=== PATIENT | female | born 1935 | race Two or more races ===

== ENCOUNTER 2019-02-11 20:53 | Observation (INO) | payer MEDICARE, OTHER ==
[~2019-02-11] VITALS: Ht 160 cm; Wt 59.7 kg
[~2019-02-11 20:53] MED LIST: ASPI81EC PO; ATEN50 PO; CLOP75 PO; CYCL10 PO; GLUCOPHAGE PO; HYDACE5 PO; IBUP800 PO; NAPR500 PO
[2019-02-11] MEDS ORDERED: Metformin HCl500 MG PO (21:35)
[2019-02-11] MEDS ORDERED: LOSA25 PO (21:36)
[2019-02-11] MEDS ORDERED: AMLO5 PO (21:36)
[2019-02-11 22:25] LABS: BASOPHILS ABSOLUTE AUTO 0.04 K/mm3 (0.00-0.23); BASOPHILS PERCENT AUTO 0 % (0-2); EOSINOPHILS ABSOLUTE AUTO 0.07 K/mm3 (0.00-0.68); EOSINOPHILS PERCENT AUTO 1 % (0-6); Hematocrit 38.3 % (33.0-51.0); Hemoglobin 13.2 g/dL (11.5-16.0); IMMATURE GRAN ABSOLUTE AUTO 0.08 K/mm3 (0.00-0.10); IMMATURE GRAN PERCENT AUTO 1 % (0-1); LYMPHOCYTES ABSOLUTE AUTO 2.46 K/mm3 (0.84-5.20); LYMPHOCYTES PERCENT AUTO 22 % (21-46); MONOCYTES ABSOLUTE AUTO 0.79 K/mm3 (0.16-1.47); MONOCYTES PERCENT AUTO 7 % (4-13); Mean Corpuscular HGB 29.8 pg (26.0-34.0); Mean Corpuscular HGB Conc 34.5 g/dL (31.5-36.5); Mean Corpuscular Volume 87 fL (80-100); Mean Platelet Volume 9.7 fL (9.1-12.4); NEUTROPHILS ABSOLUTE AUTO 7.76 K/mm3 (1.96-9.15); NEUTROPHILS PERCENT AUTO 69 % (41-73); Platelet Count 227 K/mm3 (150-400); RDW Coefficient Variation 12.9 % (11.7-14.2); RDW Standard Deviation 40.9 fL (35.1-46.3); Red Blood Cell Count 4.43 M/mm3 (3.80-5.20)
[2019-02-11 22:43] LABS: Alanine Aminotransfer (ALT/SGP 35 U/L (12-78); Albumin, Blood 3.6 g/dL (3.4-5.0); Albumin/Globulin Ratio 0.8 (0.8-1.8); Alk Phos 99 U/L (50-136); Anion Gap 11 mmol/L (6-16); Aspartate Aminotrans (AST/SGOT 27 U/L (12-37); Bilirubin, Total 0.7 mg/dL (0.1-1.0); Blood Urea Nitrogen 13 mg/dL (8-24); Bun/Creatinine Ratio 25.7 (12.0-20.0); CO2, Blood 25 mmol/L (21-32); Calcium, Blood 8.9 mg/dL (8.5-10.1); Chloride, Blood 97 mmol/L (98-108); Creatinine, Blood 0.51 mg/dL (0.40-1.00); Ethanol (Alcohol), Blood, Med <3 mg/dL; Globulin, Blood 4.4 g/dL (2.2-4.0); Glomerular Filtration Rate >60 (60-); Glucose, Blood 251 mg/dL (70-99); Potassium, Blood 3.2 mmol/L (3.5-5.5); Sodium, Blood 133 mmol/L (136-145)
[2019-02-11 23:21] LABS: Source, Urine Clean Catch
[2019-02-11 23:25] LABS: Appearance, Urine Clear (Clear); Bilirubin, Urine Neg (Neg); Blood, Urine 2+ (Neg); Color, Urine Yellow (P-Yellow); Glucose Qualitative, Urine 4+ (Neg); Ketones, Urine Neg (Neg); Leukocyte Esterase, Urine Neg (Neg); Nitrite, Urine Neg (Neg); Protein, Urine 1+ (Neg); Urobilinogen, Urine NORM (Normal)
[2019-02-11 23:32] LABS: Bacteria Not Seen /hpf; Red Blood Cells, Urine 0-2 /hpf (0-2); Squamous Epithelial Cells Not Seen /hpf (Few); White Blood Cells, Urine Not Seen /hpf (0-5)
[2019-02-11 23:34] LABS: U Amphetamine Screen Not Detected; U Barbituate Screen Not Detected; U Benzodiazapine Screen Not Detected; U Buprenorphine Screen Not Detected; U Cannabinoids Screen Not Detected; U Cocaine Screen Not Detected; U Methadone Screen Not Detected; U Methamphetamine Screen Not Detected; U Opiates Screen Not Detected; U Oxycodone Screen Not Detected; U Phencyclidine Screen Not Detected; U Propoxyphene Screen Not Detected
[2019-02-12 04:42] LABS: Hematocrit 35.6 % (33.0-51.0); Mean Corpuscular HGB Conc 33.7 g/dL (31.5-36.5); Mean Corpuscular Volume 89 fL (80-100); Mean Platelet Volume 9.2 fL (9.1-12.4); Platelet Count 201 K/mm3 (150-400); RDW Coefficient Variation 12.8 % (11.7-14.2); RDW Standard Deviation 42.2 fL (35.1-46.3)
[2019-02-12 04:57] LABS: International Normalized Ratio 1.04
[2019-02-12 05:04] LABS: Alanine Aminotransfer (ALT/SGP 28 U/L (12-78); Albumin, Blood 3.3 g/dL (3.4-5.0); Albumin/Globulin Ratio 0.9 (0.8-1.8); Alk Phos 86 U/L (50-136); Anion Gap 7 mmol/L (6-16); Aspartate Aminotrans (AST/SGOT 18 U/L (12-37); Bilirubin, Total 0.8 mg/dL (0.1-1.0); Blood Urea Nitrogen 10 mg/dL (8-24); Bun/Creatinine Ratio 18.7 (12.0-20.0); CO2, Blood 28 mmol/L (21-32); Calcium, Blood 8.4 mg/dL (8.5-10.1); Chloride, Blood 104 mmol/L (98-108); Creatinine, Blood 0.54 mg/dL (0.40-1.00); Globulin, Blood 3.8 g/dL (2.2-4.0); Glomerular Filtration Rate >60 (60-); Glucose, Blood 221 mg/dL (70-99); Potassium, Blood 3.1 mmol/L (3.5-5.5); Sodium, Blood 139 mmol/L (136-145); Total Protein, Blood 7.1 g/dL (6.4-8.2)
[2019-02-12 05:27] LABS: Adenovirus Not Detected (NOT DETECT); Bordetella pertussis Not Detected (NOT DETECT); Chlamydophila pneumoniae Not Detected (NOT DETECT); Coronavirus 229E Not Detected (NOT DETECT); Coronavirus HKU1 Not Detected (NOT DETECT); Coronavirus NL63 Not Detected (NOT DETECT); Coronavirus OC43 Detected (NOT DETECT); Human Metapneumovirus Not Detected (NOT DETECT); Human Rhinovirus/Enterovirus Not Detected (NOT DETECT); Influenza A Not Detected (NOT DETECT); Influenza A/2009-H1 Not Detected (NOT DETECT); Influenza A/H1 Not Detected (NOT DETECT); Influenza A/H3 Not Detected (NOT DETECT); Influenza B Not Detected (NOT DETECT); Mycoplasma pneumoniae Not Detected (NOT DETECT); Parainfluenza Virus 1 Not Detected (NOT DETECT); Parainfluenza Virus 2 Not Detected (NOT DETECT); Parainfluenza Virus 3 Not Detected (NOT DETECT); Parainfluenza Virus 4 Not Detected (NOT DETECT); Respiratory Syncytial Virus Not Detected (NOT DETECT)
--- NOTE | 2019-02-12 05:52 | NUR ---
ADMIT/SHIFT NOTE PT ARRIVED TO ICU 4 PCU OBS STATUS AT 0245 VIA ER BED. PT IS AWAKE UPON ARRIVAL. PT WITH LANGUAGE BARRIER, FAMILY PRESENT AT BEDSIDE TO TRANSLATE. PT IS ABLE TO ANSWER QUESTION AND FOLLOW COMMANDS APPROPRIATELY. PUPILS EQUAL, INSPECTOR PAPER PRODUCTS EQUAL. PT IS CALM AND PLEASANT THROUGHOUT THE SHIFT. VITAL SIGNS STABLE, PT ON ROOM AIR. NS INFUSING AT 75 ML/HR. PT UP TO BSC TO VOID ONCE WITH 2 PERSON ASSIST. PT TAKEN FOR REPEAT HEAD CT THIS AM TO FOLLOW UP. WILL CONTINUE TO MONITOR AND REPORT OFF TO ONCOMING RN.
--- NOTE | 2019-02-12 09:40 | NUR ---
FAMILY FACILITATING COMMUNICATION AND ASSISTING WITH PT CARE PT SPEAKS NO LAO. NEURO IS STABLE AT THIS TIME AND PT IS SLEEPING. WILL FOLLOW. DAUGHTER IS ASSISTING WITH PO INTAKE AND INSTRUCTED TO HAVE HOB ELEVATED FOR PT SAFETY AND CARE.
--- NOTE | 2019-02-12 14:32 | NUR ---
REPORT CALLED TO EL GANDHI RN AND PT WILL BE TRANSFERED TO PCU 14 VIA W/C. PT HAS BEEN UP TO VOID X3 THIS SHIFT. NEURO STATUS HAS BEEN STABLE. PT ABLE TO STAND AND SBA PROVIDED FOR SAFETY.
--- NOTE | 2019-02-12 15:16 | NUR ---
TRANSFER PT A NEW TRANSFER TO [facility] FROM ICU. PT IS ALERT WITH NO COMPLAINTS PER PT'S DAUGHTER. PT DOES NOT SPEAK BELARUSIAN AND PT'S DAUGHTER HELPS WITH COMMUNICATION BETWEEN STAFF AND PT. NO REQUESTS AT THIS TIME. CALL LIGHT IN REACH. WILL CONTINUE TO MONITOR. BED ALARM ON FOR SAFETY.
--- NOTE | 2019-02-12 18:23 | NUR ---
SHIFT SUMMARY PT WAS A ICU TRANSFER THIS AFTERNOON. PT ALERT BUT DOES NOT SPEAK HAITIAN SO DIFFICULT TO ASSESS ORIENTATION. FAMILY AT BEDSIDE AND HELPING WITH COMMUNICATION. NO COMPLAINTS AT THIS TIME. WAITING FOR CT RESULTS FOR POSSIBLE DISCHARGE HOME TONIGHT. FAMILY AT BEDSIDE. WILL CONTINUE TO MONITOR.
[2019-02-12] MEDS ORDERED: LIDO700A20 TOP (18:40)
[2019-02-12] MEDS ORDERED: TRAM50 PO (18:41)
--- NOTE | 2019-02-12 19:15 | NUR ---
DISCHARGE PT DISCHARGED TO HOME. DISCHARGE INSTRUCTIONS AND MEDICATIONS EXPLAINED BY [employer] DEVELOPER. PT TRANSFERRED TO PRIVATE VEHICLE VIA WHEELCHAIR. BELONGINGS WITH FAMILY AND PT.
== END 2019-02-12 18:30 | disposition home or self-care (01) ==
LOC: ER 20:53 → ICUE 20:54 → ICUW 20:54 → ICUE 02-12 02:44 → PCU 02-12 14:30
PROVIDERS: Emergency Medicine; ADMIT Internal Medicine
DX: S06.5X0A Traumatic subdural hemorrhage without loss of consciousness, initial encounter (principal); S05.11XA Contusion of eyeball and orbital tissues, right eye, initial encounter; R53.1 Weakness; E86.0 Dehydration; K59.00 Constipation, unspecified; E87.6 Hypokalemia; R45.1 Restlessness and agitation; E11.9 Type 2 diabetes mellitus without complications; I10 Essential (primary) hypertension; M81.0 Age-related osteoporosis without current pathological fracture; Z79.899 Other long term (current) drug therapy; W19.XXXA Unspecified fall, initial encounter
CPT/HCPCS: 36415; 70450; 71046; 72100; 72125; 80053; 81001; 82947; 83605; 84145; 85025; 85027; 85610; 87486; 87581; 87633; 87798; 93005; 93010; 96361; 96374; 99285-25; G0480; J1885; J2060; J3480; J7030

== ENCOUNTER → 2019-02-19 | Outpatient (CLI) | payer MEDICARE, OTHER ==
[~2019-02-19] MED LIST changes: +AMLO5 PO; +LIDO700A20 TOP; +LOSA25 PO; +Metformin HCl500 MG PO; +TRAM50 PO
[2019-02-19 15:44] LABS: Anion Gap 9 mmol/L (6-16); Blood Urea Nitrogen 12 mg/dL (8-24); Bun/Creatinine Ratio 14.3 (12.0-20.0); CO2, Blood 27 mmol/L (21-32); Calcium, Blood 9.1 mg/dL (8.5-10.1); Chloride, Blood 93 mmol/L (98-108); Creatinine, Blood 0.84 mg/dL (0.40-1.00); Glomerular Filtration Rate >60 (60-); Glucose, Blood 189 mg/dL (70-99); Potassium, Blood 3.6 mmol/L (3.5-5.5); Sodium, Blood 129 mmol/L (136-145)
== END | disposition home or self-care (01) ==
LOC: LAB EV 15:34 → LAB SHORT 15:34
PROVIDERS: Family Medicine
DX: E87.6 Hypokalemia (principal)
CPT/HCPCS: 80048

== ENCOUNTER → 2020-02-02 | Outpatient (CLI) | payer MEDICARE, OTHER ==
[2020-02-02 13:53] LABS: BASOPHILS ABSOLUTE AUTO 0.06 K/mm3 (0.00-0.23); BASOPHILS PERCENT AUTO 1 % (0-2); EOSINOPHILS PERCENT AUTO 1 % (0-6); Hematocrit 37.2 % (33.0-51.0); Hemoglobin 12.9 g/dL (11.5-16.0); IMMATURE GRAN ABSOLUTE AUTO 0.05 K/mm3 (0.00-0.10); IMMATURE GRAN PERCENT AUTO 1 % (0-1); LYMPHOCYTES PERCENT AUTO 35 % (21-46); MONOCYTES ABSOLUTE AUTO 0.82 K/mm3 (0.16-1.47); MONOCYTES PERCENT AUTO 10 % (4-13); Mean Corpuscular HGB 30.5 pg (26.0-34.0); Mean Corpuscular HGB Conc 34.7 g/dL (31.5-36.5); Mean Corpuscular Volume 88 fL (80-100); Mean Platelet Volume 9.6 fL (9.1-12.4); NEUTROPHILS ABSOLUTE AUTO 4.63 K/mm3 (1.96-9.15); NEUTROPHILS PERCENT AUTO 53 % (41-73); Platelet Count 263 K/mm3 (150-400); RDW Coefficient Variation 12.9 % (11.7-14.2); RDW Standard Deviation 41.1 fL (35.1-46.3); Red Blood Cell Count 4.23 M/mm3 (3.80-5.20); White Blood Cell Count 8.66 K/mm3 (4.00-11.30)
[2020-02-02 13:59] LABS: Anion Gap 9 mmol/L (6-16); Blood Urea Nitrogen 13 mg/dL (8-24); Bun/Creatinine Ratio 17.3 (12.0-20.0); CO2, Blood 26 mmol/L (21-32); Calcium, Blood 8.6 mg/dL (8.5-10.1); Chloride, Blood 99 mmol/L (98-108); Creatinine, Blood 0.75 mg/dL (0.40-1.00); Glomerular Filtration Rate >60 (60-); Glucose, Blood 201 mg/dL (70-99); Potassium, Blood 3.5 mmol/L (3.5-5.5); Sodium, Blood 134 mmol/L (136-145)
== END ==
LOC: LAB SHORT 13:50 → LAB EV 13:50
PROVIDERS: Family Medicine
DX: J06.9 Acute upper respiratory infection, unspecified (principal)
CPT/HCPCS: 80048; 85025

== ENCOUNTER 2022-06-14 13:10 | Inpatient (IN) | payer MEDICARE, OTHER ==
[~2022-06-14] VITALS: Ht 149.9 cm; Wt 44.3 kg
[2022-06-14 13:58] LABS: BASOPHILS ABSOLUTE AUTO 0.02 K/mm3 (0.00-0.23); BASOPHILS PERCENT AUTO 0 % (0-2); EOSINOPHILS ABSOLUTE AUTO 0.19 K/mm3 (0.00-0.68); EOSINOPHILS PERCENT AUTO 3 % (0-6); Hematocrit 40.7 % (33.0-51.0); Hemoglobin 14.3 g/dL (11.5-16.0); IMMATURE GRAN ABSOLUTE AUTO 0.02 K/mm3 (0.00-0.10); IMMATURE GRAN PERCENT AUTO 0 % (0-1); LYMPHOCYTES ABSOLUTE AUTO 1.81 K/mm3 (0.84-5.20); LYMPHOCYTES PERCENT AUTO 24 % (21-46); MONOCYTES ABSOLUTE AUTO 0.67 K/mm3 (0.16-1.47); MONOCYTES PERCENT AUTO 9 % (4-13); Mean Corpuscular HGB 30.7 pg (26.0-34.0); Mean Corpuscular HGB Conc 35.1 g/dL (31.5-36.5); Mean Corpuscular Volume 87 fL (80-100); Mean Platelet Volume 9.8 fL (9.1-12.4); NEUTROPHILS ABSOLUTE AUTO 4.94 K/mm3 (1.96-9.15); NEUTROPHILS PERCENT AUTO 64 % (41-73); Platelet Count 256 K/mm3 (150-400); RDW Coefficient Variation 13.7 % (11.7-14.2); Red Blood Cell Count 4.66 M/mm3 (3.80-5.20); White Blood Cell Count 7.65 K/mm3 (4.00-11.30)
[2022-06-14 14:25] LABS: Albumin, Blood 3.3 g/dL (3.4-5.0); Albumin/Globulin Ratio 0.7 (0.8-1.8); Bilirubin, Total 0.3 mg/dL (0.1-1.0); Bun/Creatinine Ratio 35.3 (12.0-20.0); Calcium, Blood 9.2 mg/dL (8.5-10.1); Creatinine, Blood 0.54 mg/dL (0.40-1.00); Globulin, Blood 4.6 g/dL (2.2-4.0); Potassium, Blood 3.5 mmol/L (3.5-5.5); Thyroid Stimulating Hormone 0.893 uIU/mL (0.360-4.800); Total Protein, Blood 7.9 g/dL (6.4-8.2)
[2022-06-14 15:18] LABS: Source, Urine Straight Cath
[2022-06-14 15:25] LABS: Appearance, Urine Clear (Clear); Bilirubin, Urine Neg (Neg); Blood, Urine 2+ (Neg); Color, Urine Yellow (P-Yellow); Glucose Qualitative, Urine 1+ (Neg); Ketones, Urine Neg (Neg); Leukocyte Esterase, Urine Neg (Neg); Nitrite, Urine Neg (Neg); Protein, Urine 2+ (Neg); Specific Gravity, Urine 1.015 (1.003-1.022); Urobilinogen, Urine NORM (Normal)
[2022-06-14 15:39] LABS: White Blood Cells, Urine 0-2 /hpf (0-5)
[2022-06-14 15:40] LABS: Bacteria Few /hpf; Squamous Epithelial Cells Few /hpf (Few)
[2022-06-14 15:41] LABS: Hyaline Casts 0-2 /lpf (0-2)
[2022-06-14] MEDS ORDERED: ATOR10 PO (18:52)
--- NOTE | 2022-06-15 05:26 | NUR ---
PT TURNED Q4 HOURS PER FAMILY AND CHANGED. IV PUMP HAD ISSUES ALL NIGHT, PUMP CHANGED AND WORKING WELL. FLUIDS ARE BEHIND SCHEDULE DUE TO THIS.
--- NOTE | 2022-06-15 17:32 | NUR ---
UNABLE TO CLEARLY MAKE NEEDS KNOWN, MOANS, TRACKS STAFF IN ROOM, REPOSITIONED THROUGH THE DAY, FAMILY AT BEDSIDE NOW, MINIMAL FOOD INTAKE, ATTENDS ON CDI, FLUID BOLUS LR TODAY, WILL RELAY TO PM, SHAHNAZ
--- NOTE | 2022-06-16 04:46 | NUR ---
NO ACUTE CHANGES DURING THE NIGHT. PT TURNED EVERY 4 HOURS. BM AT START OF SHIFT. PT CONTINUES TO TRACK STAFF IN ROOM.
--- NOTE | 2022-06-16 07:20 | NUR ---
REPORT FROM PM RN, DR KENDALL ROUNDED, REPORTED FAMILY TO BE PRESENT WHEN PT IS IN TREATING PATIENT, NO CHANGES IN PATIENT STATUS, MORE ALERT, NO DISTRESS, UNABLE TO CLEARLY MAKE NEEDS KNOWN, PATIENT NOT IMPULSIVE AND VERY WEAK, UNABLE TO GET OOB, BED ALARM ON, WCTM
--- NOTE | 2022-06-16 17:01 | NUR ---
FAMILY AT BEDSIDE, HELPED INTERPRET WITH PT, PATIENT VERY WEAK DID NOT GET OOB TODAY, PT TO ROUND AGAIN TOMORROW, PATIENT ORIENTED TO FAMILY, TRACKS STAFF WHILE IN THE ROOM, DOES NOT ANSWER QUESTIONS BUT DOES ANSWER FOR FAMILY. fAMILY FEEDING PATIENT WITH HOME SOFT FOODS, PATIENT REPOSITIONED, UNABLE TO CLEARLY MAKE NEEDS KNOAN, ATTENDS ON, IV BOLUS X1 INFUSING NOW, LS DIM COARSE WEAK COUGH, SOME CONGESTION CLEARED WITH COUGH, REPOSITIONED THROUGH THE DAY, UNABLE TO CLEARLY MAKE NEEDS KNOWN, PER FAMILY PATIENT DENIES NV OR PAIN, WCTM, PATIENT NOT IMPULSIVE TOO WEAK TO GET OOB, PATIENT IS HELPING TURN, WILL RELAY TO PM RN
--- NOTE | 2022-06-16 18:49 | NUR ---
patient bladder scanned volume was 710, reported to dr borrego, waiting for him to call back with further orders
--- NOTE | 2022-06-16 18:53 | NUR ---
DR KENDALL CALLED BACK, PATIENTS FLUIDS TO BE STOPPED AND STRAIGHT CATH FOR BLADDERS SCAN 710 ML
--- NOTE | 2022-06-17 00:17 | NUR ---
MEPILEX PLACED TO COCCYX TO PROVIDE CUSHIONING AND TO PREVENT SKIN BREAKDOWN. PT REPOSITIONED.
--- NOTE | 2022-06-17 05:20 | NUR ---
SHIFT SUMMARY: NO ACUTE CHANGES. PT WAS STRAIGHT CATH WITH 500 OUT AT BEGINNING OF SHIFT. SM SOFT BOWEL MOVEMENT X ONE. MEPILEX APPLIED TO COCCYX FOR CUSHIONING. PT REPOSITIONED FOR COMFORT. MOUTH CARE PROVIDED. COUGH SYRUP GIVEN TIMES ONE VIA MOUTHSWAB. HOB POSITIONED FOR COMFORT. NO MORNING VITALS TAKEN PER ORDERS TO LET PT SLEEP. WILL CONTINUE TO PROVIDE CARE UNTIL SHIFT REPORT. CALL LT IN REACH.
--- NOTE | 2022-06-17 10:21 | NUR ---
DR KENDALL ROUNDED THIS AM POSSIBLE DISCHARGE LATER TODAY OR IN AM
--- NOTE | 2022-06-17 16:34 | NUR ---
DR KENDALL IN ROOM WITH PATIENT AND FAMILY
--- NOTE | 2022-06-17 17:19 | NUR ---
UNABLE TO CLEARLY MAKE NEEDS KNOWN, POOR SWALLOW, LS COARSE AND RHONCHI, REPORTED POOR INTAKE AND NO OUTPUT FOR THE DAY TO DR KENDALL, PER DR KENDALL STRAIGHT CATH WHEN PRV 500ML OR GREATER. REPOSITIONED THROUGHOUT THE DAY Q2H, MEPILEX IN PLACE ON COCCYX, PATIENT TO BE DISCHARGED HOME TOMORROW, WILL RELAY TO PM RN, SHAHNAZ
--- NOTE | 2022-06-17 20:07 | NUR ---
ATTEMPTED ONE TIME ORDERED DOSE OF ROBITUSSIN COUGH SYRUP. PT DID NOT TOLERATE. USED A MOUTH SPONGE AND ELEVATED HOB TO ASSIST PT. PT WAS NOT ACTIVELY SWALLOWING. GAVE WATER VIA MOUTH SPONGE, PT HAS A DELAYED SWALLOWING RESPONSE. WAS NOT ABLE TO FULLY GIVE THE ORDERED DOSE. WILL CONTINUE TO PROVIDE CARE.
--- NOTE | 2022-06-17 23:15 | NUR ---
MOUTH CARE GIVEN. PT FLOATED ON TWO PILLOWS. BLE FLOATED ON PILLOW.
--- NOTE | 2022-06-18 00:35 | NUR ---
PT RESTING QUIETLY. CALL LT IN REACH.
--- NOTE | 2022-06-18 01:51 | NUR ---
PT RESTING QUIETLY. CALL LT IN REACH.
--- NOTE | 2022-06-18 04:30 | NUR ---
SHIFT SUMMARY: PT REPOSITIONED FOR COMFORT. MOUTH CARE OFFERED, MOISTENED MOUTH SPONGES WITH WATER GIVEN WITH DELAYED SWALLOWING. SOME COUGH SYRUP GIVEN VIA MOUTH SPONGE WITH DELAYED SWALLOWING. HOB KEPT ELEVATED AFTER LIQUID GIVEN. PT RESTED WELL DURING SHIFT. WILL CONTINUE TO PROVIDE CARE.
--- NOTE | 2022-06-18 11:00 | NUR ---
PT DISCHARGED PT DISCHARGED VIA GURNEY. FAMILY NOTIFIED OF TIME OF DISCHARGE. PT WAS AWAKE NON VERBAL APPEARED TO BE BREATHING EASILY. PT ACCOMPANIED BY AMBULANCE ESCORTS
== END 2022-06-18 10:54 | disposition home or self-care (01) | DRG 177 ==
LOC: ER 13:10 → MEDS 15:38 → ERHOLD 15:38 → MEDS 18:32
PROVIDERS: Emergency Medicine; ADMIT Hospitalist
PROC: XW033H6 Introduction of Other New Technology Monoclonal Antibody into Peripheral Vein, Percutaneous Approach, New Technology Group 6 (ICD-10-PCS; 2022-06-14)
PROC: 8E0ZXY6 Isolation (ICD-10-PCS; principal; 2022-06-15)
DX: U07.1 COVID-19 (principal); G92.8 Other toxic encephalopathy; F02.81 Dementia in other diseases classified elsewhere, unspecified severity, with behavioral disturbance; F05 Delirium due to known physiological condition; I10 Essential (primary) hypertension; L89.151 Pressure ulcer of sacral region, stage 1; Z66 Do not resuscitate; E11.9 Type 2 diabetes mellitus without complications; G30.9 Alzheimer's disease, unspecified; M81.0 Age-related osteoporosis without current pathological fracture; Z79.899 Other long term (current) drug therapy; Z79.84 Long term (current) use of oral hypoglycemic drugs; E86.0 Dehydration; E78.5 Hyperlipidemia, unspecified; Z86.73 Personal history of transient ischemic attack (TIA), and cerebral infarction without residual deficits; D64.9 Anemia, unspecified; Z23 Encounter for immunization
CPT/HCPCS: 36415; 70450; 71045; 80053; 81001; 84443; 85025; 93005; 93010; 96372; 97162; 97530; 99285-25; A9270; G0378; J1650; J7030; J7120; M0222

== ENCOUNTER 2023-09-22 13:03 | Inpatient (IN) | payer MEDICARE, OTHER ==
[~2023-09-22] VITALS: Ht 154.9 cm; Wt 34.0 kg
[~2023-09-22 13:03] MED LIST changes: +ATOR10 PO
[2023-09-22 13:41] LABS: BASOPHILS ABSOLUTE AUTO 0.02 K/mm3 (0.00-0.23); BASOPHILS PERCENT AUTO 0 % (0-2); EOSINOPHILS ABSOLUTE AUTO 0.01 K/mm3 (0.00-0.68); EOSINOPHILS PERCENT AUTO 0 % (0-6); Hematocrit 52.5 % (33.0-51.0); Hemoglobin 16.7 g/dL (11.5-16.0); IMMATURE GRAN ABSOLUTE AUTO 0.08 K/mm3 (0.00-0.10); IMMATURE GRAN PERCENT AUTO 0 % (0-1); LYMPHOCYTES ABSOLUTE AUTO 1.65 K/mm3 (0.84-5.20); LYMPHOCYTES PERCENT AUTO 9 % (21-46); MONOCYTES ABSOLUTE AUTO 0.48 K/mm3 (0.16-1.47); MONOCYTES PERCENT AUTO 3 % (4-13); Mean Corpuscular HGB 30.3 pg (26.0-34.0); Mean Corpuscular HGB Conc 31.8 g/dL (31.5-36.5); Mean Corpuscular Volume 95 fL (80-100); Mean Platelet Volume 11.9 fL (9.1-12.4); NEUTROPHILS ABSOLUTE AUTO 16.66 K/mm3 (1.96-9.15); NEUTROPHILS PERCENT AUTO 88 % (41-73); Platelet Count 265 K/mm3 (150-400); RDW Coefficient Variation 14.1 % (11.7-14.2); RDW Standard Deviation 49.3 fL (35.1-46.3); Red Blood Cell Count 5.51 M/mm3 (3.80-5.20)
[2023-09-22 13:59] LABS: Albumin, Blood 3.6 g/dL (3.4-5.0); Albumin/Globulin Ratio 0.6 (0.8-1.8); Bilirubin, Total 1.2 mg/dL (0.1-1.0); Bun/Creatinine Ratio 60.2 (12.0-20.0); Creatinine, Blood 1.28 mg/dL (0.40-1.00); Globulin, Blood 5.8 g/dL (2.2-4.0); Potassium, Blood 4.7 mmol/L (3.5-5.5); Source, Urine Clean Catch; Total Protein, Blood 9.4 g/dL (6.4-8.2)
[2023-09-22 14:22] LABS: Appearance, Urine Cloudy (Clear); Bilirubin, Urine Neg (Neg); Blood, Urine 1+ (Neg); Color, Urine Yellow (P-Yellow); Glucose Qualitative, Urine Neg (Neg); Ketones, Urine Neg (Neg); Leukocyte Esterase, Urine 1+ (Neg); Nitrite, Urine Neg (Neg); Protein, Urine 1+ (Neg); Urobilinogen, Urine 1+ (Normal)
[2023-09-22 14:52] LABS: Bacteria Many /hpf; Hyaline Casts 0-2 /lpf (0-2); Mucus Light (0-Heavy); Red Blood Cells, Urine 0-2 /hpf (0-2); Squamous Epithelial Cells Rare /hpf (Few); Transitional Epithelial Cells Rare /hpf (0-Rare); White Blood Cells, Urine 25-50 /hpf (0-5)
[2023-09-22 16:03] LABS: Influenza A, PCR NEGATIVE (NEGATIVE); Influenza B, PCR NEGATIVE (NEGATIVE); Resp Syncytial Virus, PCR NEGATIVE (NEGATIVE); SARS-Cov-2 (COVID-19) PCR, MMC NEGATIVE (NEGATIVE)
[2023-09-22 18:19] VITALS: BP 148/91
--- NOTE | 2023-09-22 19:50 | NUR ---
ADMISSION NOTE: PATIENT WAS TRANSFERRED FROM THE ED TO MEDICAL FLOOR AT 1800 VIA CART. SHE WAS TRANSFERRED TO BED IN PATIENT ROOM. FAMILY ARRIVED TO ROOM SHORTLY AFTER WHERE ADMISSION HISTORY WAS COMPLETED. PATIENT IN BED, CALL LIGHT WITHIN REACH, CARE CHANNEL ON PLAYING MUSIC, NO SIGNS OR SYMPTOMS OF DISTRESS WITH THE PATIENT.
[2023-09-22 21:36] LABS: Bun/Creatinine Ratio 64.3 (12.0-20.0); Calcium, Blood 8.9 mg/dL (8.5-10.1); Creatinine, Blood 0.96 mg/dL (0.40-1.00); Potassium, Blood 3.7 mmol/L (3.5-5.5)
[2023-09-23 03:34] VITALS: BP 123/79
--- NOTE | 2023-09-23 04:42 | NUR ---
SHIFT SUMMARY; NO ACUTE CHANGES OVERNIGHT. THE PT IS OBTUNDED AND NONVERBAL THIS SHIFT. THE PT IS BEDREST R/T ACUTE WEAKNESS. THE PT HAD A CRITICAL LACTIC AND SODIUM EARLIER IN THE SHIFT BUT THEN FLUIDS WERE SWITCHED AND ON THE REDRAW SODIUM HAD CAME DOWN. THE PT HAS BEEN SLEEPING IN BED FOR THE DURATION OF THE SHIFT. THE PT DOES NOT APPEAR TO BE IN ANY PAIN AT THIS TIME. CURRENTLY THE PT IS SLEEPING IN BED WITH THE BED IN THE LOWEST POSITION AND THE CALL LIGHT AT BEDSIDE. FIRE SAFETY ROUNDS COMPLETED.
[2023-09-23 05:45] LABS: Hematocrit 42.7 % (33.0-51.0); Hemoglobin 13.8 g/dL (11.5-16.0); Mean Corpuscular HGB 30.7 pg (26.0-34.0); Mean Corpuscular HGB Conc 32.3 g/dL (31.5-36.5); Mean Corpuscular Volume 95 fL (80-100); Mean Platelet Volume 11.7 fL (9.1-12.4); Platelet Count 206 K/mm3 (150-400); RDW Coefficient Variation 14.1 % (11.7-14.2); RDW Standard Deviation 48.5 fL (35.1-46.3); White Blood Cell Count 15.65 K/mm3 (4.00-11.30)
[2023-09-23 06:06] LABS: BAND PERCENT MAN 8 % (0-8); BASOPHILS PERCENT MAN 0 % (0-2); EOSINOPHILS PERCENT MAN 0 % (0-6); LYMPHOCYTES ABSOLUTE MAN 0.46 K/mm3 (0.84-5.20); LYMPHOCYTES PERCENT MAN 3 % (21-46); MONOCYTES ABSOLUTE MAN 0.31 K/mm3 (0.16-1.47); MONOCYTES PERCENT MAN 2 % (4-13); NEUTROPHILS ABSOLUTE MAN 14.86 K/mm3 (1.96-9.15); SEG NEUTROPHILS PERCENT MAN 87 % (41-73); TOTAL CELLS COUNTED 100
[2023-09-23 06:17] LABS: Albumin, Blood 2.7 g/dL (3.4-5.0); Albumin/Globulin Ratio 0.6 (0.8-1.8); Bilirubin, Total 1.2 mg/dL (0.1-1.0); Bun/Creatinine Ratio 51.4 (12.0-20.0); Calcium, Blood 8.7 mg/dL (8.5-10.1); Creatinine, Blood 0.88 mg/dL (0.40-1.00); Globulin, Blood 4.6 g/dL (2.2-4.0); Potassium, Blood 3.2 mmol/L (3.5-5.5)
[2023-09-23 06:19] LABS: Total Protein, Blood 7.3 g/dL (6.4-8.2)
[2023-09-23 07:23] VITALS: BP 121/76
[2023-09-23 13:06] LABS: Calcium, Blood 8.6 mg/dL (8.5-10.1); Creatinine, Blood 0.85 mg/dL (0.40-1.00); Potassium, Blood 3.4 mmol/L (3.5-5.5)
[2023-09-23 15:52] VITALS: BP 122/71
--- NOTE | 2023-09-23 16:56 | NUR ---
SHIFT SUMMARY; PATIENT REMAINS MOSTLY NONVERBAL THROUGHOUT THE DAY. FAMILY CAME TO SEE HER AND DID FEED HER OK'D BY . PER FAMILY MAY FEED HER IF THEY FEEL COMFORTABLE. PATIENT DOES ROUSE TO VERBAL STIMULI WITH FAMILY SPEAKING TO HER. PER FAMILY SHE IS CLOSE TO HER BASELINE. HER SODIUM REMAINS ELEVATED AT 155 THIS AFTERNOON. REPEAT LABS ARE ORDERED THIS EVENING.
[2023-09-23 20:14] VITALS: BP 125/70
[2023-09-23 21:50] LABS: Bun/Creatinine Ratio 39.8 (12.0-20.0); Calcium, Blood 8.4 mg/dL (8.5-10.1); Creatinine, Blood 0.65 mg/dL (0.40-1.00); Potassium, Blood 3.3 mmol/L (3.5-5.5)
--- NOTE | 2023-09-24 04:47 | NUR ---
SHIFT SUMMARY; NO ACUTE CHANGES OVERNIGHT. THE PT HAS BEEN ALMOST ENTIRELY UNRESPONSIVE THIS SHIFT. THE PT OCCASSIONALLY WILL MOVE HER ARMS. THE PT DOES NOT APPEAR TO BE IN ANY PAIN. CURRENTLY THE PT IS SLEEPING IN BED WITH THE BED IN THE LOWEST POSITION AND THE CALL LIGHT AT BEDSIDE. AT THE BEGINNING OF SHIFT THE PT'S FAMILY WAS GIVING HER PUREED KING ON A MOUTH SWAB. FIRE SAFETY CHECKS COMPLETED.
[2023-09-24 04:58] VITALS: BP 134/74
[2023-09-24 06:30] LABS: Calcium, Blood 8.3 mg/dL (8.5-10.1); Creatinine, Blood 0.67 mg/dL (0.40-1.00); Potassium, Blood 3.2 mmol/L (3.5-5.5)
[2023-09-24 07:56] VITALS: BP 135/80
[2023-09-24 15:38] VITALS: BP 121/72
--- NOTE | 2023-09-24 17:36 | NUR ---
SHIFT SUMMARY; SATINDER NOW COMFORT CARE. FAMILY AT BEDSIDE. IV FLUIDS DC'D. SATINDER ROUSES TO VERBAL STIMULI FROM FAMILY SHE IS NON VERBAL. MAKES MOANING SOUNDS. COUGHING WEAKLY DIFFICULTY CLEARING HER AIRWAY. FAMILY REQUEST HOLDING OFF ON CATHETER IF POSSIBLE. WILL REMAIN AVAILABLE FOR THIS PATIENT AND FAMILY SHOULD ANY WANTS OR NEEDS COME UP.
--- NOTE | 2023-09-25 06:46 | NUR ---
PATIENT A/O TO SELF, NON-VERBAL. FAMILY AT BEDSIDE. APPEARS TO BE IN NO ACUTE DISTRESS, ASLEEP THROUGHOUT MOST OF SHIFT. DID HAVE BM, AWOKE BRIEFLY FOR CARES, AND TOLERATED WELL, STILL NON-VERBAL, OPENS EYES ONLY. NO ACUTE CHANGES NOTED OVERNIGHT. BED LOCKED, CALL LIGHT WITHIN REACH.
--- NOTE | 2023-09-25 09:54 | NUR ---
care PT RECEIVING BED BATH. LARGE BM. MEPELEX TO HEELS AND COCCYX CHANGED. DEPENDENT EDEMA NOTED ON BACK AND SACRUM. CONTINUE POC.
--- NOTE | 2023-09-25 10:21 | NUR ---
IV ACCESS CONFIMRED BY DR ORONA THAT PT DOES NOT NEED TO HAVE IV IN FOR GOING HOME. CONTINUEPOC.
--- NOTE | 2023-09-25 12:33 | NUR ---
Spiritual care visit conducted. Upon receiving a referral and the request for a Hinduism prayer to be prayed for the patient, I visited the patient. No family is present. Patient is minimally responsive only opening her eyes when I said her name and a slight nod and a blink when asked if I could say the uzbek version of a voodoo prayer for her. I gladly provided said prayer. The patient looked at me and gave a smirk at the conclusion to the prayer and then made no more attempts to communicate but just rested. I will continue to remain available to patient and family
--- NOTE | 2023-09-25 13:06 | NUR ---
DISCHARGE PT DISCHARGED HOME VIA GURNEY ACCOMPANIED BY FAMILY. PT WITH EYES OPEN. TRANSFERED WITH 3 ASSIST. BELONGINGS SENT WITH FAMILY. CONTINUE POC.
== END 2023-09-25 13:05 | disposition hospice, home (50) | DRG 871 ==
LOC: ER 13:03 → MEDS 17:11 → ENPENDDIS 09-25 12:07 → MEDS 09-25 13:05
PROVIDERS: Emergency Medicine; Nurse Practitioner Acute Care; ADMIT Hospitalist
DX: A41.51 Sepsis due to Escherichia coli [E. coli] (principal); G92.8 Other toxic encephalopathy; N39.0 Urinary tract infection, site not specified; Z16.12 Extended spectrum beta lactamase (ESBL) resistance; E87.0 Hyperosmolality and hypernatremia; N17.9 Acute kidney failure, unspecified; Z51.5 Encounter for palliative care; Z66 Do not resuscitate; B96.20 Unspecified Escherichia coli [E. coli] as the cause of diseases classified elsewhere; R65.20 Severe sepsis without septic shock; E11.9 Type 2 diabetes mellitus without complications; I10 Essential (primary) hypertension; E86.0 Dehydration; E78.5 Hyperlipidemia, unspecified; G30.9 Alzheimer's disease, unspecified; F02.80 Dementia in other diseases classified elsewhere, unspecified severity, without behavioral disturbance, psychotic disturbance, mood disturbance, and anxiety; Z79.84 Long term (current) use of oral hypoglycemic drugs; Z11.52 Encounter for screening for COVID-19
CPT/HCPCS: 0241U; 36415; 51701; 70450; 71045; 80048; 80053; 81001; 83605; 83735; 84295; 85025; 87040; 87077; 87086; 87186; 93005; 93010; 96361; 96365; 99285-25; J0696; J1644; J2185; J3480; J7030; J7050; J7060; J7070